=== PATIENT | female | born 1975 | race Caucasian/White ===

== ENCOUNTER 2018-12-03 07:15 | Emergency (ER) | payer MEDICAID ==
[~2018-12-03] VITALS: Ht 147.3 cm; Wt 56.0 kg
[~2018-12-03 07:15] MED LIST: PREN1TAB49 PO
[2018-12-03 07:17] VITALS: Ht 147.3 cm; Wt 56.0 kg
[2018-12-03] MEDS ORDERED: KETOROLAC 30 MG INJ IV STA (07:38)
[2018-12-03] MEDS ORDERED: ONDANSETRON 4 MG INJ IV STA (07:38)
[2018-12-03] MEDS ORDERED: SOD CHLORIDE 0.9% 1,000 ML IV STA (07:38)
[2018-12-03] MEDS ORDERED: IBUP-1542 PO (10:18)
[2018-12-03] MEDS ORDERED: DICY10CA40 PO (10:18)
--- NOTE | 2018-12-03 10:22 | ERD ---
ER Documentation Chief Complaint Chief Complaint R.side flanl pain with pain with urination x 1 week HPI 43-year-old female presents the emergency department complaining of right-sided flank pain. Patient states she is had her pain on and off for about 2 years now. Got worse over the last week. Pain is localized in the right upper quadrant and radiates towards her back. Patient reports the pain as more significant than what it normally is. She reports no nausea or vomiting, no fevers or chills. She reports no urinary symptoms including no dysuria or hematuria. She reports no vaginal bleeding or discharge. ROS All systems reviewed and are negative except as per history of present illness. Medications Home Meds Active Scripts Ibuprofen* (Ibuprofen*) 600 Mg Tablet, 600 MG PO Q6H PRN for PAIN, #30 TAB Prov:CHERYL SAMUELS 12/03/18 Dicyclomine HCl (Dicyclomine HCl) 10 Mg Capsule, 10 MG PO TID PRN for ABDOMINAL CRAMPING, #20 CAP Prov:CHERYL SAMUELS 12/03/18 Reported Medications Vits W-Ca,Fe,Fa(<1MG) () 1 Tab Tablet, 1 TAB PO DAILY, #1 09/29/12 Allergies Allergies: Coded Allergies: No Known Drug Allergies (Verified Allergy, Mild, 09/29/12) PMhx/Soc Hx Alcohol Use: No Hx Substance Use: No Hx Tobacco Use: No Smoking Status: Never smoker FmHx Noncontributory for chief complaint Physical Exam Vitals Vital Signs Date Temp Pulse Resp B/P (MAP) Pulse Ox O2 O2 Flow FiO2 Time Delivery Rate 12/03/18 94 22 115/62 100 Room Air 07:51 (79) 12/03/18 97.6 79 18 120/64 99 07:17 (82) Physical Exam GENERAL: The patient is well developed and appropriate for usual state of health in no apparent distress HEENT: Pupils equal, round, and reactive to light. EOMI. There is no scleral icterus. NECK: C-spine is soft and supple, there is no meningismus. There is no cervical lymphadenopathy. LUNGS: Clear to auscultation bilaterally. There are no rales, wheezes or rhonchi. HEART: Regular rate and rhythm, no murmurs, clicks, rubs or gallops. ABDOMEN: Soft, non-tender, non-distended. There are bowel sounds in all four quadrants. No rebound or guarding. No CVA tenderness. : No inguinal adenopathy or abnormalities noted. EXTREMITIES: There is no peripheral cyanosis or edema. No focal swelling or erythema. NEURO: The patient moves all four extremities with 5/5 strength. Cranial nerves II - XII are intact. Normal gait. Alert and oriented SKIN: There is no apparent rash or petechiae. HEME/LYMPHATIC: There is no evidence of excessive bruising or lymphedema. PSYCHIATRIC: The patient does not appear anxious or depressed. Result Diagram: 12/03/18 0745 12/03/18 0745 Results 24 hrs Laboratory Tests Test 12/03/18 07:45 12/03/18 07:58 White Blood Count 7.1 10^3/ul Red Blood Count 4.20 10^6/ul Hemoglobin 13.1 g/dl Hematocrit 37.6 % Mean Corpuscular Volume 89.5 fl Mean Corpuscular Hemoglobin 31.2 pg Mean Corpuscular Hemoglobin Concent 34.8 g/dl Red Cell Distribution Width 12.8 % Platelet Count 297 10^3/UL Mean Platelet Volume 9.7 fl Immature Granulocytes % 0.100 % Neutrophils % 44.4 % Lymphocytes % 45.2 % Monocytes % 7.3 % Eosinophils % 2.2 % Basophils % 0.8 % Nucleated Red Blood Cells % 0.0 /100WBC Immature Granulocytes # 0.010 10^3/ul Neutrophils # 3.2 10^3/ul Lymphocytes # 3.2 10^3/ul Monocytes # 0.5 10^3/ul Eosinophils # 0.2 10^3/ul Basophils # 0.1 10^3/ul Nucleated Red Blood Cells # 0.0 10^3/ul Urine Color YELLOW Urine Clarity SLIGHTLY CLOUDY Urine pH 6.0 Urine Specific Chase 1.021 Urine Ketones NEGATIVE mg/dL Urine Nitrite NEGATIVE mg/dL Urine Bilirubin NEGATIVE mg/dL Urine Urobilinogen NEGATIVE mg/dL Urine Leukocyte Esterase NEGATIVE Shea/ul Urine Microscopic RBC 6 /HPF Urine Microscopic WBC 0 /HPF Urine Squamous Epithelial Cells FEW /HPF Urine Hemoglobin 1+ mg/dL Urine Glucose NEGATIVE mg/dL Urine Total Protein NEGATIVE mg/dl Sodium Level 141 mmol/L Potassium Level 3.5 mmol/L Chloride Level 108 mmol/L Carbon Dioxide Level 24 mmol/L Anion Gap 9 Blood Urea Nitrogen 16 mg/dl Creatinine 0.74 mg/dl Est Glomerular Filtrat Rate mL/min > 60 mL/min Glucose Level 99 mg/dl Calcium Level 8.9 mg/dl Total Bilirubin 1.0 mg/dl Direct Bilirubin 0.00 mg/dl Indirect Bilirubin 1.0 mg/dl Aspartate Amino Transf (AST/SGOT) 23 IU/L Alanine Aminotransferase (ALT/SGPT) 26 IU/L Alkaline Phosphatase 57 IU/L Total Protein 7.6 g/dl Albumin 4.2 g/dl Globulin 3.40 g/dl Albumin/Globulin Ratio 1.23 Lipase 83 U/L POC Beta HCG, Qualitative NEGATIVE Current Medications Medications Dose Sig/Harper Start Time Status Last (Trade) Ordered Route PRN Stop Time Admin Dose Reason Admin Sodium 1,000 ml @ Q1H STAT 12/03/18 DC 12/03/18 Chloride 1,000 mls/hr IV 07:38 07:54 12/03/18 08:37 Ondansetron 4 mg ONCE STAT 12/03/18 DC 12/03/18 HCl (Zofran IV 07:38 07:55 Inj) 12/03/18 07:39 Ketorolac 30 mg ONCE STAT 12/03/18 DC 12/03/18 Tromethamine IV 07:38 07:55 (Toradol) 12/03/18 07:39 Procedures/MDM Patient was taken to a room, seen and evaluated. Comfort measures were initiated. Diagnostic tests were ordered and reviewed. 3 LEAD RHYTHM STRIP: Normal sinus rhythm without ectopy RADIOLOGY: Reviewed with the radiologist REEVALUATION: 1020: Diagnostic tests were appreciated. So examinations of the abdomen remained benign. Patient remained well-appearing. MEDICAL DECISION MAKIN-year-old female presents with right flank pain of uncertain etiology. Differential diagnosis focused on kidney as well as recurrent hepatobiliary concerns, despite the cholecystectomy. Patient's diagnostic work-up shows no evidence of biliary obstruction, no evidence of pancreatitis, no evidence of pyelonephritis or kidney stones. Her concerns about her inguinal discomfort showed no evidence of mass or abscess or lymphadenopathy. Overall she appears to be clinically well at this time and seems appropriate for discharge. Departure Diagnosis: Primary Impression: Flank pain Condition: Stable Patient Instructions: Flank Pain, Uncertain Cause Additional Instructions: Consulte a villanueva mdico para el seguimiento segn lo discutido. Lleve ruthie copia de los resultados de villanueva prueba, si corresponde, a esta visita de seguimiento. Consulte a villanueva mdico o regrese aqu si sharan sntomas no mejoran matti se esperaba. En cualquier momento, regrese al departamento de emergencias por cualquier cambio o empeoramiento en sharan sntomas. CHERYL SAMUELS Dec 03, 2018 10:22
[2018-12-03 10:30] VITALS: BP 86/47; PULSE 68; RESP 16
== END 2018-12-03 10:30 | disposition home or self-care (01) ==
LOC: E/R 07:15
DX: R10.11 Right upper quadrant pain (principal)
CPT/HCPCS: 36415; 76705; 80053; 81001; 81025; 83690; 85025; 96374; 96375; J1885; J2405; J7030; Z7502; Z7610

== ENCOUNTER 2018-12-31 07:42 | Emergency (ER) | payer MEDICAID ==
[~2018-12-31] VITALS: Ht 157.5 cm; Wt 55.1 kg
[~2018-12-31 07:42] MED LIST changes: +DICY10CA40 PO; +HYDR-4011 PO; +IBUP-1542 PO
[2018-12-31 07:45] VITALS: BP 132/74; PULSE 86; RESP 18; Ht 157.5 cm; Wt 55.1 kg
[2018-12-31] MEDS: IBUPROFEN 600 MG TAB PO ONE ×2 (08:22→08:23)
[2018-12-31] MEDS ORDERED: HYDROCODONE/APAP (5/325) TAB PO ONE (08:30)
--- NOTE | 2018-12-31 09:43 | ERD ---
ER Documentation Chief Complaint Chief Complaint pelvic pain possible hernia x 1 week radiating to both legs HPI Patient is a 43-year-old female, presents to the ER for concerns of right-sided pelvic pain for last week. Patient states she feels a "ball" in the right side pelvis. She states she can feel the "ball" move when pushing at it. Patient denies any falls or trauma. Patient states she does occasionally have dysuria. She denies any frequency, urgency or hematuria. Patient has no fevers or chills. Patient denies any changes in her bowels. Patient denies any changes with her menstrual period. ROS All systems reviewed and are negative except as per history of present illness. Medications Home Meds Active Scripts Hydrocodone/Acetaminophen (Corona 5-325 Tablet) 1 Each Tablet, 1 TAB PO Q6H PRN for PAIN, #7 TAB Prov:DAVID BARNES PA-C 12/31/18 Ibuprofen* (Ibuprofen*) 600 Mg Tablet, 600 MG PO Q6H PRN for PAIN, #30 TAB Prov:CHERYL SAMUELS 12/03/18 Dicyclomine HCl (Dicyclomine HCl) 10 Mg Capsule, 10 MG PO TID PRN for ABDOMINAL CRAMPING, #20 CAP Prov:CHERYL SAMUELS 12/03/18 Reported Medications Vits W-Ca,Fe,Fa(<1MG) () 1 Tab Tablet, 1 TAB PO DAILY, #1 09/29/12 Allergies Allergies: Coded Allergies: No Known Drug Allergies (Verified Allergy, Mild, 09/29/12) PMhx/Soc History of Surgery: Yes (csection x 2) Hx Neurological Disorder: No Hx Respiratory Disorders: No Hx Cardiac Disorders: No Hx Psychiatric Problems: No Hx Miscellaneous Medical Probl: No Hx Alcohol Use: No Hx Substance Use: No Hx Tobacco Use: No FmHx Family History: No diabetes Physical Exam Vitals Vital Signs Date Temp Pulse Resp B/P (MAP) Pulse Ox O2 O2 Flow FiO2 Time Delivery Rate 12/31/18 98.1 86 18 132/74 99 07:45 (93) Physical Exam GENERAL: Well-developed, well-nourished female. Appears in no acute distress. HEAD: Normocephalic, atraumatic. EYES: Pupils are equally reactive bilaterally. EOMs grossly intact. No conjunctival erythema. NECK: Supple. No meningismus. Normal range of motion of the neck. LUNG: Clear to auscultation bilaterally. No rhonchi, wheezing, rales or coarse breath sounds. HEART: Regular rate and rhythm. No murmurs, rubs or gallops. ABDOMEN: Soft, and nondistended. Tender to palpation of the right pelvic region. Reducible hernia noted in the right inguinal region. Positive bowel sounds in all four quadrants. No rebound tenderness, no guarding. (-) McBurney's point tenderness. No CVA tenderness. BACK: No midline tenderness. EXTREMITIES: Equal pulses bilaterally. No peripheral clubbing, cyanosis or edema. No unilateral leg swelling. NEUROLOGIC: Alert and oriented. Moving all four extremities without any difficulty. Normal speech. Steady gait. SKIN: Normal color. Warm and dry. No rashes or lesions. Results 24 hrs Laboratory Tests Test 12/31/18 08:25 12/31/18 08:27 POC Beta HCG, Qualitative NEGATIVE Bedside Urine pH (LAB) 6.5 Bedside Urine Protein (LAB) 1+ Bedside Urine Glucose (UA) Negative Bedside Urine Ketones (LAB) Negative Bedside Urine Blood Trace-intact Bedside Urine Nitrite (LAB) Negative Bedside Urine Leukocyte Esterase (L Negative Current Medications Medications Dose Sig/Harper Start Time Status Last (Trade) Ordered Route PRN Stop Time Admin Dose Reason Admin Ibuprofen 600 mg ONCE ONCE 12/31/18 DC (Motrin) PO 08:30 12/31/18 08:30 1 tab ONCE ONCE 12/31/18 DC 12/31/18 Acetaminophen PO 08:30 08:49 / 12/31/18 08:31 Hydrocodone Bitart (Corona (5/325)) Procedures/MDM ED COURSE: The patient was stable throughout ED course. I kept the patient and/or family informed of laboratory and diagnostic imaging results throughout the ED course. DIAGNOSTIC IMAGING: Read by radiologist. Patient: MARQUITA MARTINEZ : 1975 Age: 43 Sex: F MR #: [id number] DOS: 12/31/18810 Ordering MD: DAVID BARNES PA-C Location: [facility] Room/Bed: PROCEDURE: Ultrasound right and left groin CLINICAL INDICATION: Inguinal hernia TECHNIQUE: Limited sonography of the right and left groin was performed with the patient standing and supine COMPARISON: None FINDINGS: There is a reversible fluid collection in the right groin seen only with the patient standing. The collection measures 3.9 cm in maximum transverse diameter. This may represent evidence of ascites within a right inguinal hernia. No left inguinal hernia is seen. IMPRESSION: Question reversible right inguinal hernia with ascites. .Romel Ellsworth MD, MD Date Time Electronically viewed and signed by .Romel Ellsworth MD, on 12/31/2018 09:01 .A/ CC: DAVID BARNES PA-C [id number] PROCEDURES: None. MEDICATIONS GIVEN: Corona Patient tolerated medication well with no adverse reactions. Patient reported improvement in pain. MEDICAL DECISION MAKING: This is a 43-year-old female presents the ER for concerns of a right-sided pelvic pain x1 week.. Vital signs were reviewed. Patient is afebrile. On exam, reducible hernia noted in the right inguinal region. Pelvic ultrasound was obtained and did show reversible right inguinal hernia with ascites. Patient was given Corona for pain. Pain did improve. Low suspicion for strangulate hernia or incarcerated hernia. Patient was advised she will need to follow-up with a general surgeon for further management of her symptoms. Referral information provided. Low suspicion for , ectopic , UTI, pyelonephritis, nephrolithiasis. Patient was nontoxic, [id number] prior to discharge. PRESCRIPTIONS: Corona DISCHARGE: At this time, patient is stable for discharge and outpatient management. I have instructed the patient to follow-up with his/her primary care physician in 1-2 days. I have instructed the patient to promptly return to the ER at any time for any new or worsening symptoms including increased pain, nausea, vomiting, diarrhea, fever, weakness or LOC. The patient and/or family expressed understanding of and agreement with this plan. All questions were answered. Home care instructions were provided. Disclaimer: Inadvertent spelling and grammatical errors are likely due to EHR/dictation software use and do not reflect on the overall quality of patient care. Also, please note that the electronic time recorded on this note does not necessarily reflect the actual time of the patient encounter. Departure Diagnosis: Primary Impression: Right inguinal hernia Condition: Fair Patient Instructions: Hernia (Inguinal, Ventral, Umbilical) Referrals: JIMENEZ HOOKER MD, SAMUEL MD KOSARI, KAMBIZ M.D. LOMIS, THOMAS MD [facility] YOU HAVE RECEIVED A MEDICAL SCREENING EXAM AND THE RESULTS INDICATE THAT YOU DO NOT HAVE A CONDITION THAT REQUIRES URGENT TREATMENT IN THE EMERGENCY DEPARTMENT. FURTHER EVALUATION AND TREATMENT OF YOUR CONDITION CAN WAIT UNTIL YOU ARE SEEN IN YOUR DOCTORS OFFICE WITHIN THE NEXT 1-2 DAYS. IT IS YOUR RESPONSIBILITY TO MAKE AN APPOINTMENT FOR FOLOW-UP CARE. IF YOU HAVE A PRIMARY DOCTOR --you should call your primary doctor and schedule an appointment IF YOU DO NOT HAVE A PRIMARY DOCTOR YOU CAN CALL OUR PHYSICIAN REFERRAL HOTLINE AT IF YOU CAN NOT AFFORD TO SEE A PHYSICIAN YOU CAN CHOSE FROM THE FOLLOW[facility] [address] [facility] [address] [facility] [address] [facility] [address] [facility] [address] [facility] [facility] [address] [facility] [facility] [facility] YOU HAVE RECEIVED A MEDICAL SCREENING EXAM AND THE RESULTS INDICATE THAT YOU DO NOT HAVE A CONDITION THAT REQUIRES URGENT TREATMENT IN THE EMERGENCY DEPARTMENT. FURTHER EVALUATION AND TREATMENT OF YOUR CONDITION CAN WAIT UNTIL YOU ARE SEEN IN YOUR DOCTORS OFFICE WITHIN THE NEXT 1-2 DAYS. IT IS YOUR RESPONSIBILITY TO MAKE AN APPOINTMENT FOR FOLOW-UP CARE. IF YOU HAVE A PRIMARY DOCTOR --you should call your primary doctor and schedule and appointment IF YOU DO NOT HAVE A PRIMARY DOCTOR YOU CAN CALL OUR PHYSICIAN REFERRAL HOTLINE AT . IF YOU CAN NOT AFFORD TO SEE A PHYSICIAN YOU CAN CHOSE FROM THE FOLLOWING [facility] INSTITUTIONS: [facility] [address] [place] [address] [facility] [address] [place] [address] [facility] [address] [place] [address] Additional Instructions: Llame al doctor MAANA y gabriel ruthie SERG PARA DENTRO DE 1-2 GARCIA.Dgale a la secretaria que nosotros le instruimos hacer esta serg.Avise o llame si villanueva condicin se empeora antes de la serg. Regresa aqui si peor o no mejor. DAVID BARNES PA-C Dec 31, 2018 09:43
== END 2018-12-31 09:39 | disposition home or self-care (01) ==
LOC: FTE 07:42
DX: K40.90 Unilateral inguinal hernia, without obstruction or gangrene, not specified as recurrent (principal)
CPT/HCPCS: 76856; 81003; 81025; Z7502; Z7610